=== PATIENT | male | born 1975 | race Caucasian/White ===

== ENCOUNTER 2018-05-17 08:54 | Outpatient (CLI) | payer OTHER | END 2018-05-17 08:55 | disposition home or self-care (01) | LOC: DTY/OP 08:54 | PROVIDERS: ATTEND Family Medicine | DX: E11.9 Type 2 diabetes mellitus without complications (principal); E66.01 Morbid (severe) obesity due to excess calories | CPT/HCPCS: 97802 ==

== ENCOUNTER 2019-06-21 09:13 | Outpatient (CLI) | payer OTHER | END 2019-06-21 09:14 | disposition home or self-care (01) | LOC: DTY/OP 09:13 | PROVIDERS: ATTEND Specialist | DX: Z01.818 Encounter for other preprocedural examination (principal); E66.01 Morbid (severe) obesity due to excess calories | CPT/HCPCS: 97802 ==

== ENCOUNTER 2019-07-23 13:00 | Outpatient (CLI) | payer OTHER | END 2019-07-23 13:01 | disposition home or self-care (01) | LOC: DTY/OP 13:00 | PROVIDERS: ATTEND Specialist | DX: Z01.818 Encounter for other preprocedural examination (principal); E66.01 Morbid (severe) obesity due to excess calories | CPT/HCPCS: 97802 ==

== ENCOUNTER 2019-10-07 05:35 | Outpatient (CLI) | payer OTHER ==
[2019-10-07 14:21] LABS: Anion Gap 19 mmol/L (10-20); BUN (Urea Nitrogen) 19 mg/dL (8.9-20.6); Calc. Creatinine Clearance 0 mL/min (70-130); Calcium 9.8 mg/dL (7.8-10.44); Carbon Dioxide 20 mmol/L (22-29); Chloride 97 mmol/L (98-107); Estimated GFR-MDRD 77; Glucose 102 mg/dL (70-105); Potassium 3.8 mmol/L (3.5-5.1); Sodium 132 mmol/L (136-145)
[2019-10-08 13:10] LABS: SARS-CoV-2 MS2 Positive; SARS-CoV-2 N Gene Negative; SARS-CoV-2 S Gene Negative; SARS-CoV-2 orf1ab Negative
== END 2019-10-07 05:36 | disposition home or self-care (01) ==
LOC: LABBT 05:35
PROVIDERS: ATTEND Specialist
DX: Z01.812 Encounter for preprocedural laboratory examination (principal); Z11.59 Encounter for screening for other viral diseases; E66.01 Morbid (severe) obesity due to excess calories; Z68.41 Body mass index [BMI] 40.0-44.9, adult
CPT/HCPCS: 80048; 87635; U0003

== ENCOUNTER 2019-10-07 11:00 | Inpatient (IN) | payer OTHER ==
[2019-10-03 14:29] VITALS: BMI 38.9
[2019-10-10] MEDS ORDERED: Heparin 5,000 UNITS/ML VIAL ONE (06:30)
[2019-10-10] MEDS ORDERED: Scopolamine 1.5 mg/72 hour Patch ONE (06:30)
[2019-10-10] MEDS ORDERED: Ketorolac Tromethamine 30 MG/ML VIAL ONE (06:30)
[2019-10-10] MEDS ORDERED: Acetaminophen 500 MG TAB ONE (06:30)
[2019-10-10] MEDS ORDERED: Midazolam HCl 2 mg/2 ml Vial ONE (06:36)
[2019-10-10] MEDS ORDERED: Fentanyl 250 MCG/5 ML VIAL ONE (06:36)
[2019-10-10] MEDS ORDERED: Lidocaine 1% w/Epinephrine 1:100K 20 ML VIAL ONE (06:54)
[2019-10-10] MEDS ORDERED: Bupivacaine 0.25% HCL 30 ML VIAL ONE (06:54)
[2019-10-10] MEDS ORDERED: Ondansetron PF 4 MG/2 ML Vial ONE ×2 (09:53→11:31)
[2019-10-10] MEDS ORDERED: hydrALAZINE 20 MG/ML VIAL SLOW IVP PRN (10:44)
[2019-10-10] MEDS ORDERED: Ondansetron PF 4 MG/2 ML Vial IVP PRN (10:44)
[2019-10-10] MEDS ORDERED: Morphine 2 MG/ML VIAL SLOW IVP PRN (10:44)
[2019-10-10] MEDS ORDERED: Promethazine HCl 25 MG/ML VIAL IM PRN (10:44)
[2019-10-10] MEDS ORDERED: Morphine 4 MG/ML VIAL SLOW IVP PRN (10:44)
[2019-10-10] MEDS ORDERED: diphenhydrAMINE 50 MG/ML VIAL IVP PRN (10:44)
[2019-10-10] MEDS ORDERED: Dextrose 5% in Water 1,000 ML IV PRN (10:44)
[2019-10-10] MEDS ORDERED: Hydrocodone-Acetamin 15 ML UDCUP PO PRN (10:44)
[2019-10-10] MEDS ORDERED: Insulin Regular 300 UNITS/3 ML VIAL SC PRN (10:44)
[2019-10-10] MEDS ORDERED: Dextrose 50% Abboject 50 ML SYRINGE SLOW IVP PRN (10:44)
[2019-10-10] MEDS ORDERED: Dexamethasone 20 MG/5 ML VIAL ONE (11:31)
[2019-10-10] MEDS ORDERED: PROPOFOL 200 MG/20 ML VIAL ONE (11:31)
[2019-10-10] MEDS ORDERED: Metoclopramide HCl 10 MG/2 ML VIAL ONE (11:31)
[2019-10-10] MEDS ORDERED: Glycopyrrolate 0.2 MG/ML 5 ML SYRINGE ONE (11:31)
[2019-10-10] MEDS ORDERED: Rocuronium Bromide 10 MG/ML (10ML VIAL) ONE (11:31)
[2019-10-10] MEDS ORDERED: Lidocaine 1% PF 5 ML VIAL ONE (11:31)
[2019-10-10 12:17] LABS: Glucose 167 mg/dL (70-105)
[2019-10-10] MEDS: Ketorolac Tromethamine 30 MG/ML VIAL IVP SCH ×3 (12:54→23:34)
[2019-10-10] MEDS: 1/2 NS w/KCL 20 mEq 1,000 ML IV SCH ×3 (14:01→23:35)
--- NOTE | 2019-10-10 14:01 | OP ---
DATE OF PROCEDURE: 10/10/2019 PREOPERATIVE DIAGNOSIS: Morbid obesity with multiple comorbidities. POSTOPERATIVE DIAGNOSIS: Morbid obesity with multiple comorbidities. PROCEDURE PERFORMED: Laparoscopic vertical sleeve gastrectomy using the ViSiGi device. ANESTHESIA: General endotracheal. WATER COMMISSIONER: Rick Arita, medical student. INDICATION FOR PROCEDURE: The patient is a 44-year-old obese white male with multiple medical comorbidities. He has undergone extensive evaluation, education, presents at this time for his bariatric procedure. DESCRIPTION OF OPERATION: Informed consent was obtained. The patient was taken to the operating room where general endotracheal anesthesia was obtained with the patient in supine position. Abdomen was prepped with ChloraPrep and draped in sterile fashion. Local anesthetic was infiltrated and 5 mm supraumbilical incision was created through which Veress needle was passed to the peritoneal cavity and pneumoperitoneum established using carbon dioxide up to a pressure of 15 mmHg. A 5 mm trocar port was passed through this same incision. Laparoscopic camera was passed through this port. Under direct vision, 4 additional ports were placed including bilateral 5 mm subcostal ports, a 12 mm right paramedian port and a 15 mm left paramedian port. A 5 mm epigastric incision was created through which Nathansen retractor was passed into the abdominal cavity and used to retract the left lobe of the liver. The patient was placed into reverse Trendelenburg position. The ViSiGi device was advanced within the stomach and used to decompress this. The pylorus was identified and beginning 4 cm proximal to the pylorus, the omentum and vascular tissue along the greater curvature was divided using the LigaSure in an ascending fashion up to the angle of His. All posterior adhesions were mobilized. The short gastric vessels were carefully divided and then hemostasis was maintained using the LigaSure. Once this was completely mobilized, the ViSiGi was carefully positioned at the level of the pylorus and placed to suction, which was clearly defining the lesser curvature of the stomach. The gastrectomy was then performed using a series of fires of the [place] stapler using a green load followed by a gold load and a series of blue loads until completion of the gastrectomy. The ViSiGi along the lesser curvature was used as a size 36 bougie to guide in the gastric division. Care was taken to avoid narrowing the incisura or the gastroesophageal junction. The integrity of the staple line was then assessed by insufflating gas through the ViSiGi while irrigating along the staple line. There was no evidence of an air leak. There was no evidence of bleeding along the staple line. The resected stomach was then removed through the 15 mm port and the fascia was closed with 0 Vicryl suture using a GraNee needle. I then closed the 12 mm port also using the GraNee needle and 0 Vicryl suture. The Nathansen retractor was removed. All ports and instruments were removed under direct vision. All irrigant was aspirated. Pneumoperitoneum was carefully evacuated. 0.25% Marcaine with epinephrine was infiltrated into each port site. Skin edges approximated with 4-0 Monocryl subcuticular suture. Dermabond was placed externally. There were no complications. The patient tolerated the procedure well and was taken to recovery room in stable condition. FINDINGS: The patient had no intraabdominal adhesions. He had no evidence of fatty liver change. He had normal intraabdominal anatomy. The operation was performed with essentially no blood loss. There was certainly no evidence of air leak on the leak test. There were no complications. The patient tolerated the procedure well and was taken to recovery room in stable condition. Job ID: [id number]
[2019-10-10 18:22] LABS: Glucose 152 mg/dL (70-105)
[2019-10-10] MEDS: Enoxaparin Sodium 40 MG/0.4 ML SYRINGE SC SCH (20:28)
[2019-10-10] MEDS: Rosuvastatin 10 MG TAB PO SCH (20:29)
[2019-10-10] MEDS: Empagliflozin 25 MG TAB PO SCH (20:29)
[2019-10-10] MEDS: Citalopram 20 MG TAB PO SCH (20:29)
[2019-10-10 21:20] LABS: Glucose 140 mg/dL (70-105)
[2019-10-11 05:43] LABS: #Basophils 0.1 thou/uL (0.0-0.2); #Lymphocytes 2.9 thou/uL (1.20-3.40); #Monocytes 1.4 thou/uL (0.11-0.59); #Neutrophils 8.5 thou/uL (1.40-6.50); %Basophils 0.4 % (0.0-1.0); %Eosinophils 0.3 % (0.0-10.0); %Lymphocytes 22.6 % (21.0-51.0); %Monocytes 10.9 % (0.0-10.0); %Neutrophils 65.8 % (42.0-75.0); Hemoglobin 14.3 g/dL (14.0-18.0); Mean Corpuscular HGB CONC 32.3 g/dL (32.0-36.0); Mean Corpuscular Hemoglobin 27.6 pg (27.0-31.0); Mean Corpuscular Volume 85.5 fL (78.0-98.0); Mean Platelet Volume 7.3 fL (7.4-10.4); Platelet Count 320 thou/uL (130-400); RBC Distribution Width 12.7 % (11.5-14.5); Red Blood Cell (RBC) Count 5.17 mill/uL (4.70-6.10); White Blood Cell (WBC) Count 12.9 thou/uL (4.8-10.8)
[2019-10-11 06:02] LABS: Anion Gap 21 mmol/L (10-20); BUN (Urea Nitrogen) 13 mg/dL (8.9-20.6); Calc. Creatinine Clearance 127 mL/min (70-130); Calcium 8.6 mg/dL (7.8-10.44); Carbon Dioxide 11 mmol/L (22-29); Chloride 108 mmol/L (98-107); Estimated GFR-MDRD 65; Glucose 103 mg/dL (70-105); Potassium 4.6 mmol/L (3.5-5.1); Sodium 135 mmol/L (136-145)
[2019-10-11] MEDS: 1/2 NS w/KCL 20 mEq 1,000 ML IV SCH (06:11)
[2019-10-11] MEDS: Ketorolac Tromethamine 30 MG/ML VIAL IVP SCH ×2 (06:11→10:59)
[2019-10-11] MEDS: Pantoprazole 40 MG VIAL IVP SCH (08:18)
--- NOTE | 2019-10-11 08:26 | PDOC.GSPN ---
Surgery Progress Note: Subj - Subjective Patient reports: feels better, pain well controlled, tolerating liquids well, no bowel movement (Mr. Keane is a 44 y/o severely obese male, post-op day 1 for a laparascopic sleeve gatsrectomy. He reports only "mild pain" this morning, severity 10, which is down from 10:44 AM yesterday (severity 5/10) for which he was given 15 ml PO hydrocodone/acetaminophen. He is able to tolerate small amounts of jello and water well, with an early feeling of fullness after eating and drinking a small amount. Patient has voided urine several times over night, but has not had any bowel movements. Patient has walked four laps around the hospital floor since yesterday, and reports no nausea since he vomited twice yesterday 2-3 hours post op.), pain is less Surgery Progress Note: Obj - Vital signs Vital signs: Vital Signs - Most Recent Temp Pulse Resp BP Pulse Ox 98.5 F 68 16 111/69 98 10/11/19 07:02 10/11/19 07:02 10/11/19 07:02 10/11/19 07:02 10/11/19 07:02 - Physical Exam General: obese Abdomen: soft, non tender, other (Did not hear bowel sounds.) Hernia: none (Incision sites are clean and nontender.) Surgery Progress Note: Results - Labs Result Diagrams: 10/11/19 05:08 10/11/19 05:08 Lab results: Laboratory Results - last 24 hr 10/10/19 10/10/19 10/11/19 20:15 20:58 05:08 WBC RBC Hgb Hct MCV MCH MCHC RDW Plt Count MPV Neutrophils % Lymphocytes % Monocytes % Eosinophils % Basophils % Neutrophils # Lymphocytes # Monocytes # Eosinophils # Basophils # Sodium 135 L Potassium 4.6 Chloride 108 H Carbon Dioxide 11 L Anion Gap 21 H BUN 13 Creatinine 1.21 Estimated GFR (MDRD) 65 Glucose 140 H 103 POC Glucose 136 H Calcium 8.6 10/11/19 10/11/19 05:08 06:15 WBC 12.9 H RBC 5.17 Hgb 14.3 Hct 44.3 MCV 85.5 MCH 27.6 MCHC 32.3 RDW 12.7 Plt Count 320 MPV 7.3 L Neutrophils % 65.8 Lymphocytes % 22.6 Monocytes % 10.9 H Eosinophils % 0.3 Basophils % 0.4 Neutrophils # 8.5 H Lymphocytes # 2.9 Monocytes # 1.4 H Eosinophils # 0.0 Basophils # 0.1 Sodium Potassium Chloride Carbon Dioxide Anion Gap BUN Creatinine Estimated GFR (MDRD) Glucose POC Glucose 108 Calcium Surgery Progress Note: A/P - Plan Plan: Assessment: Patient has substantial reduction in blood CO2 (11) below the reference range. Patient has elevated WBC (12.9) and neutrophilia (8.5) which is likely normal postoperative response as patient is afebrile. Patient's blood glucose has decreased from 140 (yesterday after surgery) to 103 today, likely due to transient hyperglycemia due to surgical stress. Patient has mild hyponatremia (135) and mild hyperchloremia (108), which are each 1 unit outside of the reference range, and not likely of clinical significance. Patient's blood pressure has declined from 142/83 (3:43 this morning) to 111/69 (7:02 AM) without medication. Patient's pain is well controlled. Plan: From a surgical standpoint, patient is recovering well and should be cleared to go home later today pending medical approval.
[2019-10-11 10:11] LABS: Lactic Acid 0.9 mmol/L (0.5-2.2)
[2019-10-11] MEDS ORDERED: Sodium Bicarbonate 150 MEQ in Dextrose 5% in Water 1,000 ML IV SCH (10:45)
[2019-10-11 10:58] LABS: Actual Bicarbonate (HCO3a) 12.2 mEq/L (22-28); Base Excess (BEa) -12.9 mEq/L (-2.0 to +3.0); CO2 Tension 27.2 mmHg (35.0-45.0); Calcium, Ionized (arterial) 1.23 mmol/L (1.12-1.30); Carboxyhemoglobin (COHb) 0.3 gm% (0.0-3.0); Hemoglobin (Hb) 14.5 g/dL (14.0-18.0); O2 Tension (PaO2), arterial 105.7 mmHg (80.0-100.0); Potassium - ABG Lab 4.43 mmol/L (3.70-5.30); pH, Arterial 7.27 (7.35-7.45)
[2019-10-11 11:00] LABS: Puncture Site RRA
--- NOTE | 2019-10-11 12:37 | PRG ---
DATE OF SERVICE: 10/11/2019 SUBJECTIVE: Mr. Keane is postoperative day #1 following laparoscopic sleeve gastrectomy. Surgery was uneventful. He had some nausea and vomiting after surgery yesterday, which was entirely resolved. He has subsequently tolerated clear liquids uneventfully. He has been ambulating regularly. He has been voiding unremarkably. He denies any significant abdominal pain this morning. OBJECTIVE: VITAL SIGNS: He is afebrile with normal vital signs. His pulse is currently 61 with a blood pressure of 121/79, oxygen saturation is 100% on room air. GENERAL: He is alert, oriented, and pleasant. He is resting in bed comfortably. LUNGS: Clear to auscultation. CARDIAC: Regular rate and rhythm. ABDOMEN: Soft. There is no guarding in any quadrant. All incisions are healing nicely. There is minimal tenderness with palpation around the incisions as expected. Bowel sounds are present, but hypoactive. EXTREMITIES: Unremarkable. LABORATORY DATA: His CBC shows white blood cell count of 12.9 with a hemoglobin of 14.3. Differential is unremarkable. Chemistries show mild hyponatremia, sodium of 135. His creatinine is up a little bit at 1.2, but still within normal limits. His glucose levels have been reasonably well controlled between 103 and 140. Of concern, on his laboratory studies, his carbon dioxide is quite low at 11. This is typically associated with some form of metabolic acidosis. ASSESSMENT: The patient who appears to be doing quite well clinically, who has a single laboratory abnormality of uncertain significance. As I am uncertain of the etiology or significance of this, I will consult Nephrology. I spoke with Dr. Bee about this, who agreed to see the patient. I explained to Mr. Keane that this will likely lengthen his hospital stay and he understood and agreed to proceed in this fashion. As I will be out of town this weekend, Dr. Butt will see him in my absence. Job ID: [id number]
--- NOTE | 2019-10-11 13:47 | CON ---
DATE OF CONSULTATION: 10/11/2019 CONSULTING PHYSICIAN: Jak Logan MD REASON FOR CONSULT: Acidosis. REASON FOR ADMISSION: Elective procedure for gastric sleeve surgery. HISTORY OF PRESENT ILLNESS: This is a 44-year-old male with history of hypertension, diabetes, and hyperlipidemia, who came to the hospital for elective surgery for gastric sleeve surgery and he was found to be acidotic postop and Nephrology was consulted. The patient denies any symptoms. No diarrhea. No nausea or vomiting. He was on metformin. He was not eating very well for a few days around surgery. PAST MEDICAL HISTORY: Positive for hypertension, morbid obesity, type 2 diabetes, hyperlipidemia, and depression. PAST SURGICAL HISTORY: Gastric sleeve surgery. HOME MEDICATIONS: Reviewed. ALLERGIES: NO KNOWN DRUG ALLERGIES. SOCIAL HISTORY: No smoking, alcohol, or illicit drugs abuse. FAMILY HISTORY: No history of kidney disease. REVIEW OF SYSTEMS: CONSTITUTIONAL: Negative for weight loss or gain, ability to conduct usual activities. SKIN: Negative for rash, itching. EYES: Negative for double vision, pain. ENT/MOUTH: Negative for nose bleeding, neck stiffness, pain, tenderness. CARDIOVASCULAR: Negative for palpitations, dyspnea on exertion, orthopnea. RESPIRATORY: Negative for shortness of breath, wheezing, cough, hemoptysis, fever or night sweats. GASTROINTESTINAL: Negative for poor appetite, abdominal pain, heartburn, nausea, vomiting, constipation, or diarrhea. GENITOURINARY: Negative for urgency, frequency, dysuria, nocturia. MUSCULOSKELETAL: Negative for pain, swelling. NEUROLOGIC/PSYCHIATRIC: Negative for anxiety, depression. ALLERGY/IMMUNOLOGIC: Negative for skin rash, bleeding tendency. PHYSICAL EXAMINATION: GENERAL: Reveals a well-built male, in no apparent distress. VITAL SIGNS: Temperature 98.5, pulse 68, respiratory rate 16, and blood pressure 111/69. HEENT: Atraumatic, normocephalic. Oral mucosa moist. NECK: Supple. CV: S1 and S2. Rate and rhythm regular. RESPIRATORY: Clear. GASTROINTESTINAL: Abdomen is soft. MUSCULOSKELETAL: No edema. DERMATOLOGIC: No skin rash. NEUROLOGIC: Alert, awake. PSYCHIATRIC: Normal mood and affect. LABORATORY DATA: Hemoglobin is 14.3. Potassium 4.6, bicarb is 11, anion gap is 21. Blood gases with pH of 7.27, pCO2 of 27.2. ASSESSMENT AND PLAN: 1. Metabolic acidosis, most likely related to metformin and probably poor p.o. intake and probably ketosis. Plan to check lactate, which turned out to be okay, lactic acid 0.9. We will check a urine ketones also. Plan is to start on bicarb drip and monitor labs. If bicarb level more than 20s, okay to safely discharge home with outpatient followup. Encourage p.o. intake if tolerated surgically. 2. Hypernatremia. 3. Morbid obesity, status post gastric sleeve surgery. 4. Hypertension, stable. 5. Diabetes. Stop metformin and monitor glucose closely and continue sliding scale for now. Follow with Primary Care. We will start on bicarb drip and check ketones and lactate and we will follow. Thank you for the consult. Job ID: [id number]
[2019-10-11] MEDS: Enoxaparin Sodium 40 MG/0.4 ML SYRINGE SC SCH (19:48)
[2019-10-11] MEDS: Empagliflozin 25 MG TAB PO SCH (19:49)
[2019-10-11] MEDS: Citalopram 20 MG TAB PO SCH (19:49)
[2019-10-11] MEDS: Rosuvastatin 10 MG TAB PO SCH (19:49)
[2019-10-12 06:29] LABS: Anion Gap 19 mmol/L (10-20); BUN (Urea Nitrogen) 10 mg/dL (8.9-20.6); Calc. Creatinine Clearance 139 mL/min (70-130); Calcium 8.5 mg/dL (7.8-10.44); Carbon Dioxide 17 mmol/L (22-29); Chloride 109 mmol/L (98-107); Estimated GFR-MDRD 72; Glucose 95 mg/dL (70-105); Sodium 141 mmol/L (136-145)
[2019-10-12] MEDS: Pantoprazole 40 MG VIAL IVP SCH (08:27)
[2019-10-12 09:32] LABS: Glucose 107 mg/dL (70-105)
[2019-10-12 11:01] VITALS: BP 122/75; TEMP 98.5
[2019-10-12 12:15] LABS: Glucose 102 mg/dL (70-105)
--- NOTE | 2019-10-12 12:54 | PDOC.GSPN ---
Surgery Progress Note: Subj - Subjective Narrative: Patient is status post gastric sleeve on 10/10/2019. He is doing very well from the standpoint of his surgery. He is tolerating his bariatric clears without problems and is only a little bit sore at his incisions. He had significant metabolic acidosis on routine postoperative lab work which is felt to likely be due to metformin and some dehydration. This is improving and he is off of his IV bicarb drip. His bicarbonate this morning is 17. Assessment/plan: Doing well status post gastric sleeve. Ready for discharge from a general surgery standpoint. Awaiting nephrology evaluation today to see if his metabolic acidosis has improved enough for him to go home. Surgery Progress Note: Obj - Vital signs Vital signs: Vital Signs - Most Recent Temp Pulse Resp BP Pulse Ox 98.5 F 63 12 122/75 97 10/12/19 11:00 10/12/19 11:00 10/12/19 11:00 10/12/19 11:00 10/12/19 11:00 Surgery Progress Note: Results - Labs Result Diagrams: 10/11/19 05:08 10/12/19 11:40 Lab results: Laboratory Results - last 24 hr 10/12/19 10/12/19 10/12/19 05:33 05:57 08:48 Sodium 141 Potassium 4.0 Chloride 109 H Carbon Dioxide 17 L Anion Gap 19 BUN 10 Creatinine 1.10 Estimated GFR (MDRD) 72 Glucose 95 107 H POC Glucose 91 Calcium 8.5 10/12/19 10/12/19 10:34 11:40 Sodium Potassium Chloride Carbon Dioxide Anion Gap BUN Creatinine Estimated GFR (MDRD) Glucose 102 POC Glucose 112 H Calcium
--- NOTE | 2019-10-12 13:44 | PRG ---
DATE OF SERVICE: 10/12/2019 SUBJECTIVE: The patient was seen and examined at bedside and overnight events noted. The patient denies any shortness of breath or chest pain or palpitation. No history of nausea or vomiting or diarrhea or fever or chills or cramps. OBJECTIVE: GENERAL: This is a well-built male, in no apparent distress. VITAL SIGNS: Temperature 98.5. Heart rate 63. Respiratory rate 11. Blood pressure 122/75. HEENT: Atraumatic, normocephalic. Oral mucosa is moist. NECK: Supple. CARDIOVASCULAR: S1, S2 heard. Rate and rhythm regular. RESPIRATORY: Clear to auscultation. GASTROINTESTINAL: Abdomen is soft. MUSCULOSKELETAL: No tenderness. No edema. DERMATOLOGIC: No skin rash. NEUROLOGIC: Alert and awake and oriented x3. No focal neurologic deficits. Moving all the extremities. PSYCHIATRIC: Mood and affect normal. LABORATORY DATA: Potassium is 4.0, BUN is 10, creatinine is 1.1 ASSESSMENT AND PLAN: 1. Metabolic acidosis, most likely from ketosis, better with IV bicarbonate and encouraged to have p.o. intake and drink plenty of fluids and follow up with the clinic in 1 week. 2. Hyponatremia. 3. Hypertension. 4. Diabetes. 5. Morbid obesity. Acidosis is better. Continue oral hydration. Follow up with the clinic in a week. Job ID: [id number]
== END 2019-10-12 14:15 | disposition home or self-care (01) | DRG 620 ==
LOC: SURG A 10-10 05:35 → EDSTATUS 10-10 11:00
PROVIDERS: ADMIT Specialist; ATTEND Specialist
PROC: 0DB64Z3 Excision of Stomach, Percutaneous Endoscopic Approach, Vertical (ICD-10-PCS; principal; 2019-10-10)
DX: E66.01 Morbid (severe) obesity due to excess calories (principal); E87.2 Acidosis; E87.1 Hypo-osmolality and hyponatremia; I10 Essential (primary) hypertension; E11.9 Type 2 diabetes mellitus without complications; E78.5 Hyperlipidemia, unspecified; E86.0 Dehydration; F32.9 Major depressive disorder, single episode, unspecified; T38.3X5A Adverse effect of insulin and oral hypoglycemic [antidiabetic] drugs, initial encounter; Z68.38 Body mass index [BMI] 38.0-38.9, adult
CPT/HCPCS: 36415; 36416; 80048; 81003; 82805; 82947; 83605; 85025; 87635; 88307; 88312; 93005; 93010; C9113; J0694; J1100; J1644; J1650; J1815; J1885; J2001; J2250; J2270; J2405; J2704; J2765; J3010; J3480; J7070; S0020; U0003